=== PATIENT | male | born 1950 ===

== ENCOUNTER 2019-02-07 08:16 | Outpatient (CLI) | payer OTHER | END 2019-02-07 08:17 | disposition home or self-care (01) | LOC: C.LAB 08:16 | DX: Z12.5 Encounter for screening for malignant neoplasm of prostate (principal); E11.9 Type 2 diabetes mellitus without complications; I10 Essential (primary) hypertension; Z13.29 Encounter for screening for other suspected endocrine disorder; M16.9 Osteoarthritis of hip, unspecified; E55.9 Vitamin D deficiency, unspecified ==